=== PATIENT | female | born 1990 | race Caucasian/White ===

== ENCOUNTER 2017-01-27 13:06 | Emergency (ER) | payer OTHER ==
[2017-01-27] MEDS ORDERED: Dexamethasone 4 mg/ml Vial ONE (14:04)
== END 2017-01-27 14:50 | disposition home or self-care (01) ==
LOC: ERS 13:06
DX: O99.512 Diseases of the respiratory system complicating pregnancy, second trimester (principal); J45.901 Unspecified asthma with (acute) exacerbation; Z3A.23 23 weeks gestation of pregnancy
CPT/HCPCS: 94640; J1100; J7620

== ENCOUNTER 2017-01-27 15:01 | Day surgery (SDC) | payer OTHER ==
[2017-01-27 16:01] VITALS: BMI 21.7
[2017-01-27] MEDS ORDERED: Ondansetron HCl/PF 4 MG/2 ML Vial IVP PRN (16:12)
[2017-01-27] MEDS ORDERED: Lactated Ringer's 1,000 ML IV SCH ×2 (16:15)
[2017-01-27 16:51] LABS: Bilirubin Negative (Negative); Blood, Urine Negative (Negative); Glucose, Urine (Dipstick) Negative (Negative); Ketone, Urine 15 mg/dL (Negative); Nitrite Negative (Negative); Protein, Urine (Dipstick) Negative (Neg-Trace); Urobilinogen 0.2 mg/dL (0.2-1.0)
[2017-01-27 16:53] LABS: #Eosinphils 0.1 thou/uL (0.0-0.7); #Lymphocytes 1.1 thou/uL (1.20-3.40); #Monocytes 0.4 thou/uL (0.11-0.59); #Neutrophils 16.7 thou/uL (1.40-6.50); %Basophils 0.1 % (0.0-1.0); %Eosinophils 0.6 % (0.0-10.0); %Monocytes 2.3 % (0.0-10.0); Bacteria/HPF 1+ HPF (None Seen); Hematocrit 37.1 % (36.0-47.0); Hyaline Casts/LPF 0-3 HYALINE CAST LPF (0-3 Hyaline); Mean Platelet Volume 7.3 fL (7.4-10.4); RBC/HPF 0-3 HPF (0-3); Red Blood Cell (RBC) Count 4.11 mill/uL (4.20-5.40); Squamous Epithelial 0-3 HPF (0-3); WBC/HPF None Seen HPF (0-3); White Blood Cell (WBC) Count 18.3 thou/uL (4.8-10.8)
[2017-01-27 16:55] LABS: Amnisure Test No Membranes Rupture (No Rupture)
[2017-01-27 17:17] LABS: ALT (SGPT) Less than 7 U/L (8-55); AST (SGOT) 10 U/L (5-34); Alkaline Phosphatase 73 U/L (40-150); Anion Gap 16 mmol/L (10-20); BUN (Urea Nitrogen) 6 mg/dL (7.0-18.7); Bilirubin, Total 0.4 mg/dL (0.2-1.2); Calc. Creatinine Clearance 137 mL/min (70-130); Calcium 10.2 mg/dL (7.8-10.44); Carbon Dioxide 18 mmol/L (22-29); Chloride 106 mmol/L (98-107); Estimated GFR-MDRD Greater than 90; Protein, Total 7.1 g/dL (6.0-8.3)
--- NOTE | 2017-01-28 06:21 | PRG ---
DATE OF SERVICE: 01/27/2017 PRESENTING COMPLAINT: Vaginal spotting with nausea and vomiting. HISTORY OF PRESENT ILLNESS: Ms. Farias is a 26-year-old 1, para 0 at 23-24 weeks' gestation . OB record is not available in the unit. By verbal report, she is 23 weeks. She sees NEEMA Chaudhari, at [facility]. OB AND NON PROFIT JOB TITLES HISTORY: Primigravida. PAST MEDICAL HISTORY: None. PAST SURGICAL HISTORY: None. ALLERGIES: KEFLEX. MEDICATIONS: vitamins. SOCIAL HISTORY: Denies tobacco, alcohol, or drug abuse. FAMILY HISTORY: Noncontributory. REVIEW OF SYSTEMS: Noncontributory. Of note, the patient reports that she and her had inte rcourse last night prior to her vaginal spotting. She denies passage of blood clots. She denies cr amps. PHYSICAL EXAMINATION: GENERAL: White female in no acute distress. VITAL SIGNS: Temperature 98.4, respirations 18, pulse 96, blood pressure 118/72. HEENT: Within normal limits. LUNGS: Clear to auscultation bilaterally. HEART: Regular rhythm. ABDOMEN: Soft and nontender. PELVIC: Vulva without lesions. Vagina is without discharge. Cervix is closed, long, and high. EXTREMITIES: Without clubbing, cyanosis, or edema. LABORATORY DATA: Hematocrit is 37% with a white count of 18,000, normal differential, negative urin alysis, and a normal CMP. The patient had negative AmniSure test. SUMMARY OF HOSPITAL COURSE: The patient received 2 liters of IV fluid hydration. Her nausea and vo miting resolved with adding of Zofran. She is feeling much better, is hungry, and desires discharge home. She will be discharged home, instructed to reduce activities for a couple of days. If she f eels worse to return to Labor and Delivery or present to NEEMA Santillan, at [facility], otherwise to keep scheduled appointment in 2 weeks.
== END 2017-01-27 19:40 | disposition home or self-care (01) ==
LOC: L&D/OP 15:01
PROVIDERS: ATTEND Advanced Practice Midwife
DX: O99.89 Other specified diseases and conditions complicating pregnancy, childbirth and the puerperium (principal); R11.2 Nausea with vomiting, unspecified; O26.852 Spotting complicating pregnancy, second trimester; Z88.1 Allergy status to other antibiotic agents; Z79.899 Other long term (current) drug therapy; Z3A.23 23 weeks gestation of pregnancy
CPT/HCPCS: 80053; 81001; 84112; 85025; 94640; 96360; 96361; 96375; J1100; J2405; J7620

== ENCOUNTER 2017-03-19 20:31 | Emergency (ER) | payer OTHER ==
[2017-03-19 20:53] LABS: Modified Allen's Test POSITIVE; Oxyhemoglobin 90.4 % (94.0-97.0); Sodium 139 mmol/L (135-148)
[2017-03-19 20:54] LABS: Mode ROOM AIR
== END 2017-03-19 21:52 | disposition home or self-care (01) ==
LOC: ERS 20:31
DX: O9A.213 Injury, poisoning and certain other consequences of external causes complicating pregnancy, third trimester (principal); T58.91XA Toxic effect of carbon monoxide from unspecified source, accidental (unintentional), initial encounter; O99.511 Diseases of the respiratory system complicating pregnancy, first trimester; J45.909 Unspecified asthma, uncomplicated; Z3A.30 30 weeks gestation of pregnancy
CPT/HCPCS: 82805

== ENCOUNTER 2017-03-19 21:55 | Day surgery (SDC) | payer OTHER ==
[2017-03-19 22:32] VITALS: BP 141/93; BMI 24.2
[2017-03-19] MEDS ORDERED: Lactated Ringer's 2,000 ML IV SCH (23:00)
[2017-03-19] MEDS ORDERED: Ondansetron HCl/PF 4 MG/2 ML Vial ONE (23:00)
[2017-03-20] MEDS ORDERED: Ondansetron HCl/PF 4 MG/2 ML Vial IVP SCH (00:45)
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
== END 2017-03-20 00:42 | disposition home or self-care (01) ==
LOC: L&D/OP 21:55
PROVIDERS: ATTEND Obstetrics & Gynecology
DX: O36.8130 Decreased fetal movements, third trimester, not applicable or unspecified (principal); O9A.213 Injury, poisoning and certain other consequences of external causes complicating pregnancy, third trimester; T58.01XA Toxic effect of carbon monoxide from motor vehicle exhaust, accidental (unintentional), initial encounter; O99.343 Other mental disorders complicating pregnancy, third trimester; F32.9 Major depressive disorder, single episode, unspecified; R11.2 Nausea with vomiting, unspecified; Z88.1 Allergy status to other antibiotic agents; Z79.899 Other long term (current) drug therapy; Z3A.30 30 weeks gestation of pregnancy; W22.8XXA Striking against or struck by other objects, initial encounter
CPT/HCPCS: 82805; 96360; 96361; 96375; J2405

== ENCOUNTER → 2017-05-21 | Day surgery (SDC) | payer OTHER ==
[2017-05-21 16:56] VITALS: BMI 25.0
--- NOTE | 2017-05-21 18:19 | PRG ---
DATE OF SERVICE: 05/21/2017 PRIMARY OB: Ms. Margie Pérez. CHIEF COMPLAINT: Abdominal pains. HISTORY OF PRESENT ILLNESS: The patient is a 26-year-old G2, P1 female with an intrauterine pregnanc y at 39 weeks and 0 days, who is presenting to Labor and Delivery with uterine contractions. The pat ient reports that she had sex about 5 hours ago and has since begun having contractions some quite se kadeem. She says that her contractions have been off and on for the last couple days. The patient den ies any leakage of fluid or vaginal bleeding. She reports irregular contractions as close to 6 minut es and as far apart to 15 minutes. She reports she was last week was checked in the office and was 1 cm and has her next appointment tomorrow. The patient denies any fever. She reports headaches off and on with the . Denies chest pain, shortness of breath, reports some nausea and vomiting throughout the . Reports constipation. Denies diarrhea. Denies any new rash, denies bleed ing or leakage of fluid. PAST MEDICAL HISTORY: Headaches, seasonal allergies and history of depression. PAST SURGICAL HISTORY: Negative. OBSTETRIC HISTORY: She has had 1 term vaginal delivery. SOCIAL HISTORY: Denies drug, alcohol or tobacco use. ALLERGIES: KEFLEX. MEDICATIONS: vitamins. OB LABS: Blood type is O negative, antibody screen negative. She is rubella immune, hepatitis B solomon face antigen is nonreactive, RPR first and third trimester nonreactive, HIV first and third trimester nonreactive. One hour Glucola 112, antibody screen is negative. PHYSICAL EXAMINATION: VITAL SIGNS: Blood pressure 132/78, heart rate of 81, respiratory rate of 18, satting 99% on room ai r, temperature 98.1. GENERAL: She appears to be in no acute distress. She is alert and oriented, and cooperative and ple asant to interact with. HEENT: Head is normocephalic, atraumatic. LUNGS: Clear to auscultation bilaterally. HEART: Regular rate and rhythm. ABDOMEN: Soft, gravid, nontender, in between contractions. EXTREMITIES: Nontender, nonedematous. CERVICAL EXAM: Per nursing staff was 1, 50 and -3 station. heart tracing performed for threatened labor and interpreted by Dr. Luciano. Baseline is in th e 120s with moderate long-term variability, positive accelerations, no decelerations. She has on the tocometer irritability with only 1 or 2 contractions seen. ASSESSMENT AND PLAN: The patient is a 26-year-old G2, P1 female with an intrauterine at 39 weeks in latent labor or just having term contractions. The patient has reassuring fetus and is mani ng discharged to home with term precautions. She has an appointment to follow up with her primary OB Ms. Pérez tomorrow.
== END ==
LOC: L&D/OP 16:20
PROVIDERS: ATTEND Obstetrics & Gynecology
DX: O47.1 False labor at or after 37 completed weeks of gestation (principal); O99.343 Other mental disorders complicating pregnancy, third trimester; F32.9 Major depressive disorder, single episode, unspecified; Z3A.39 39 weeks gestation of pregnancy; Z88.1 Allergy status to other antibiotic agents; Z79.899 Other long term (current) drug therapy
CPT/HCPCS: 99282

== ENCOUNTER 2017-05-22 04:37 | Inpatient (IN) | payer OTHER ==
[2017-05-22 05:14] VITALS: BMI 24.3
[2017-05-22] MEDS ORDERED: Misoprostol 200 MCG TAB PR PRN (05:14)
[2017-05-22] MEDS ORDERED: Lidocaine 1% (PF) 30 ML VIAL SC PRN (05:14)
[2017-05-22] MEDS ORDERED: HYDROcodone/Acetaminophen 5/325 mg Tablet PO PRN ×3 (05:14→10:37)
[2017-05-22] MEDS ORDERED: Methylergonovine 0.2 MG/ML VIAL IM PRN ×2 (05:14→10:37)
[2017-05-22] MEDS ORDERED: LR / Pitocin 40 units/1000 ml 1,000 ML IV PRN (05:14)
[2017-05-22] MEDS ORDERED: Ondansetron HCl/PF 4 MG/2 ML Vial IVP PRN (05:14)
[2017-05-22] MEDS ORDERED: Ibuprofen 800 MG TAB PO PRN (05:14)
[2017-05-22] MEDS ORDERED: Lactated Ringer's 1,000 ML IV PRN (05:14)
[2017-05-22] MEDS ORDERED: Promethazine HCl 25 MG/ML VIAL IM PRN (05:14)
[2017-05-22] MEDS ORDERED: Oxytocin 10 UNITS/ML VIAL IM PRN (05:21)
[2017-05-22 05:49] LABS: Hemoglobin 11.3 g/dL (12.0-16.0); Mean Corpuscular HGB CONC 32.9 g/dL (32.0-36.0); Mean Corpuscular Hemoglobin 25.6 pg (27.0-31.0); Mean Corpuscular Volume 77.8 fl (81.0-99.0); Mean Platelet Volume 6.9 fL (7.4-10.4); Platelet Count 378 thou/uL (130-400); RBC Distribution Width 14.2 % (11.5-14.5); Red Blood Cell (RBC) Count 4.39 mill/uL (4.20-5.40); White Blood Cell (WBC) Count 12.1 thou/uL (4.8-10.8)
[2017-05-22 06:21] LABS: HBSAg Index 0.25 S/CO (0-0.99); Hep B Surf Ag Non-Reactive S/CO (NonReactive); Syphilis Antibody Nonreactive (Nonreactive); Syphilis Antibody Index 0.05 S/CO (<1.00 Non-Reactive)
--- NOTE | 2017-05-22 07:21 | PDOC.LDHP ---
Labor and Delivery H&P Chief complaint: contractions HPI: Pt started contrqcting last night, and was sent home. Her contractions got stronger around midnight. Just before 5am, she came to the hospital. Current gestational age (weeks): 39 Due date: 05/28/16 Grav: 2 Para: 1 OB History Details: #1 at 40weeks 5lb 15oz. #2 current Current complications: none Abnormal US findings: No Past Medical History: allergic rhinitis, anemia, depression (not on medications) Current medications: pre- vitamins Previous surgical history: none Allergies/Adverse Reactions: Allergies Allergy/AdvReac Type Severity Reaction Status Date / Time cephalexin [From Keflex] Allergy Mild Hives Verified 05/22/17 05:10 Social history: none - Physical Exam Vital signs reviewed and normal: yes General: breathing through contractions Heart: RRR Lungs: nonlabored breathing Abdomen: gravid - Vaginal Exam cm dilated: 10 Effacement: 100% Station: 3+ - OB Labs Blood type: O RH: negative Antibody Screen: negative HIV: negative RPR: negative HEPSAg: negative 1 hour GCT: negative GBS: negative Urine drug screen: not done Rubella: immune - Assessment L&D Assessment: term patient in labor - Plan Plan: admit to L&D -: anticipate Rhogam after delivery.
--- NOTE | 2017-05-22 07:28 | PDOC.OPDEL ---
OB Operative/Delivery Note Delivery Dr/Surgeon: Marisol Pérez Pre-Delivery Diagnosis: active labor Procedure/Post Delivery Dx: spontaneous vaginal delivery Weeks gestation: 39 Anesthesia: none - Findings A Sex: female Weight: 6 lb 5 oz - 1 min: 9 - 5 min: 9 - Additional Findings/Plan Placenta delivered: spontaneous Repaired Obstetrical Laceration: none Estimated blood loss: 300mL Post delivery plan: routine recovery
[2017-05-22] MEDS ORDERED: Misoprostol 200 MCG TAB VAG PRN (10:37)
[2017-05-22] MEDS ORDERED: Milk Of Magnesia 30 ML UDCUP PO PRN (10:37)
[2017-05-22] MEDS ORDERED: Bisacodyl 10 MG SUPP PR PRN (10:37)
[2017-05-22] MEDS ORDERED: Benzocaine/Menthol 20-0.5% 60 ML CAN TOP PRN (10:37)
[2017-05-22] MEDS ORDERED: Lanolin Ointment 7 GM TUBE TOP PRN (10:37)
[2017-05-22] MEDS ORDERED: LR / Pitocin 40 units/1000 ml 1,000 ML IV SCH (10:37)
[2017-05-22] MEDS ORDERED: Adacel (T-DAP) 0.5 ML VIAL IM ONE (10:37)
[2017-05-22] MEDS ORDERED: Prenatal Vitamin 1 TAB PO SCH (11:15)
[2017-05-22] MEDS ORDERED: Docusate Calcium (SURFAK) 240 MG CAP PO SCH (11:15)
[2017-05-22] MEDS ORDERED: Ferrous Sulfate 325 MG TAB PO SCH (11:15)
[2017-05-22] MEDS ORDERED: Sodium Chloride 0.9% 10 ML ONE (13:10)
[2017-05-22] MEDS: Ibuprofen 800 MG TAB PO SCH ×2 (13:14→22:07)
[2017-05-22] MEDS: Ferrous Sulfate 325 MG TAB PO SCH (17:15)
[2017-05-22] MEDS: HYDROcodone/Acetaminophen 5/325 mg Tablet PO PRN (19:53)
[2017-05-22] MEDS: Docusate Calcium (SURFAK) 240 MG CAP PO SCH (19:53)
[2017-05-23] MEDS: HYDROcodone/Acetaminophen 5/325 mg Tablet PO PRN ×2 (01:01→12:14)
[2017-05-23 05:25] LABS: Mean Corpuscular HGB CONC 32.7 g/dL (32.0-36.0); Mean Corpuscular Hemoglobin 25.9 pg (27.0-31.0); Mean Corpuscular Volume 79.2 fl (81.0-99.0); Platelet Count 288 thou/uL (130-400); Red Blood Cell (RBC) Count 3.49 mill/uL (4.20-5.40); White Blood Cell (WBC) Count 12.6 thou/uL (4.8-10.8)
[2017-05-23] MEDS: Ibuprofen 800 MG TAB PO SCH ×2 (06:02→14:13)
[2017-05-23 06:25] VITALS: TEMP 98.6
[2017-05-23 08:24] VITALS: BP 106/58
[2017-05-23] MEDS: Ferrous Sulfate 325 MG TAB PO SCH (08:45)
[2017-05-23] MEDS: Docusate Calcium (SURFAK) 240 MG CAP PO SCH (08:45)
[2017-05-23] MEDS ORDERED: Prenatal Vitamin 1 TAB PO SCH (09:00)
== END 2017-05-23 16:40 | disposition home or self-care (01) | DRG 775 ==
LOC: L&D/OP 04:37 → L&D-LIB 05:23 → 3SW 10:36
PROVIDERS: ADMIT Obstetrics & Gynecology; ATTEND Obstetrics & Gynecology
PROC: 10E0XZZ Delivery of Products of Conception, External Approach (ICD-10-PCS; principal; 2017-05-22)
DX: O80 Encounter for full-term uncomplicated delivery (principal); Z37.0 Single live birth; Z3A.39 39 weeks gestation of pregnancy
CPT/HCPCS: 36415; 85027; 85461; 86780; 87340; 90384; 90715; 96372; 99282; 99285; A4216; J2001; J2590

== ENCOUNTER 2017-05-28 17:24 | Emergency (ER) | payer OTHER ==
[~2017-05-28 17:24] MED LIST: ISOVUE-370 76%-LOCM 1 ML ONE
[2017-05-28 18:21] LABS: Bilirubin Negative (Negative); Blood, Urine Large (Negative); Clarity CLOUDY (Clear); Glucose, Urine (Dipstick) Negative (Negative); Leukocyte Moderate (Negative); Nitrite Negative (Negative); Protein, Urine (Dipstick) Trace mg/dL (Neg-Trace); Specific Gravity, Urine 1.009 (1.002-1.036); pH, Urine 6.5 (5.0-9.0)
[2017-05-28 18:22] LABS: Bacteria/HPF None Seen HPF (None Seen); Hyaline Casts/LPF 0-3 HYALINE CAST LPF (0-3 Hyaline); RBC/HPF GREATER THAN 50-TNTC HPF (0-3); Squamous Epithelial 0-3 HPF (0-3); WBC/HPF 21-50 HPF (0-3)
--- NOTE | 2017-05-28 18:28 | RAD ---
PA AND LATERAL CHEST X-RAY 05/28/17 HISTORY: Dyspnea. Patient is less than one week . Patient also complains of chest pain and shortness of breath. COMPARISON: None available. FINDINGS: The cardiac silhouette and pulmonary vasculature are within normal limits. The lungs are clear. [place] us structures are intact. IMPRESSION: No acute cardiopulmonary process. POS: CODIE
[2017-05-28 18:30] LABS: #Basophils 0.1 thou/uL (0.0-0.2); #Eosinphils 0.1 thou/uL (0.0-0.7); #Lymphocytes 3.1 thou/uL (1.20-3.40); #Monocytes 0.7 thou/uL (0.11-0.59); #Neutrophils 5.4 thou/uL (1.40-6.50); %Basophils 1.1 % (0.0-1.0); %Eosinophils 1.5 % (0.0-10.0); %Neutrophils 57.3 % (42.0-75.0); Hemoglobin 11.1 g/dL (12.0-16.0); Mean Corpuscular HGB CONC 32.7 g/dL (32.0-36.0); Mean Corpuscular Hemoglobin 25.8 pg (27.0-31.0); Mean Corpuscular Volume 78.7 fl (81.0-99.0); Mean Platelet Volume 6.4 fL (7.4-10.4); Platelet Count 452 thou/uL (130-400); RBC Distribution Width 14.8 % (11.5-14.5); Red Blood Cell (RBC) Count 4.32 mill/uL (4.20-5.40); White Blood Cell (WBC) Count 9.5 thou/uL (4.8-10.8)
[2017-05-28 18:36] LABS: INR-International Normal Ratio 0.9; Prothrombin Time 12.6 SEC (12.0-14.7)
[2017-05-28 18:38] LABS: D-Dimer Test 1.18 *mcg/mL (0.27-0.43)
[2017-05-28 18:51] LABS: ALT (SGPT) 13 U/L (8-55); AST (SGOT) 13 U/L (5-34); Albumin 3.9 g/dL (3.5-5.0); Alkaline Phosphatase 116 U/L (40-150); Anion Gap 14 mmol/L (10-20); BUN (Urea Nitrogen) 15 mg/dL (7.0-18.7); Bilirubin, Total 0.3 mg/dL (0.2-1.2); Calc. Creatinine Clearance 0 mL/min (70-130); Calcium 9.4 mg/dL (7.8-10.44); Carbon Dioxide 21 mmol/L (22-29); Chloride 107 mmol/L (98-107); Estimated GFR-MDRD 88; Globulin 3.2 g/dL (2.4-3.5); Glucose 90 mg/dL (70-105); Potassium 3.5 mmol/L (3.5-5.1); Protein, Total 7.1 g/dL (6.0-8.3); Sodium 138 mmol/L (136-145)
[2017-05-28 18:55] LABS: CKMB 1.2 ng/mL (0-6.6); Troponin I Less than 0.010 ng/mL (< 0.028)
--- NOTE | 2017-05-28 21:15 | CT ---
CT ANGIOGRAM THORAX WITH IV CONTRAST AND 3D RECONSTRUCTIONS 05/28/17 HISTORY: Chest pain. Patient states she feels intermittent tightness within the central chest with associated shortness of breath. Patient also reports vaginal bleeding. COMPARISON: None available. FINDINGS: There is a 4 mm pulmonary nodule seen in the right middle lobe adjacent to the fissure. This could po tentially represent nodular pleural thickening. The lungs are otherwise clear. There is no pleural ef fusion, additional pulmonary nodule, or mass seen. Osseous structures are intact. The visualized upper abdomen has a normal CT appearance. IMPRESSION: 1. No CT evidence of a pulmonary embolus. 2. Pleural based pulmonary nodule right middle lobe measuring 4 mm which is too small to charact erize. POS: CODIE
== END 2017-05-28 21:31 | disposition home or self-care (01) ==
LOC: ERS 17:24
DX: O99.89 Other specified diseases and conditions complicating pregnancy, childbirth and the puerperium (principal); R07.89 Other chest pain; R91.1 Solitary pulmonary nodule; N39.0 Urinary tract infection, site not specified; O99.53 Diseases of the respiratory system complicating the puerperium; J45.909 Unspecified asthma, uncomplicated
CPT/HCPCS: 36415; 71046; 71275; 80053; 81003; 81015; 82553; 84484; 85025; 85379; 85610; 87086; 93005; 96360; 96361

== ENCOUNTER 2018-09-07 01:36 | Observation (INO) | payer OTHER, SELFPAY ==
[2018-09-07 04:09] VITALS: BMI 17.9
--- NOTE | 2018-09-07 04:10 | PDOC.FPRHP ---
- History of Present Illness Chief Complaint: nausea and vomiting History of Present Illness: Patient is a 27YO @ 26.1 weeks c/w her LMP who was transferred from the [facility] ER after presenting there with intractable N/V determined to be 2/2 hyperemesis gravidarum. Per the patient, she has been dealing with intractable nausea and vomiting for the entire duration of this and had a "bad week" this week where she has been unable to keep anything down. She had been trying diclegis, phenergan and zofran at home with no relief so finally decided to go to the ER for evaluation and treatment. She reports associated dizziness, clamminess, and headaches but denies any fever/chills or diarrhea. Of note, the patient reports ~4-5 ER visits during this for her hyperemesis during which she goes to get IVFs and IV antiemetics for a few hours before being sent home. She has never been admitted for her hyperemesis and also experienced hyperemesis during her last . ED Course: zofran - Allergies/Adverse Reactions Allergies Allergy/AdvReac Type Severity Reaction Status Date / Time cephalexin [From Keflex] Allergy Mild Hives Verified 05/22/17 05:10 - Home Medications Medication Instructions Recorded Confirmed Type Ondansetron [Zofran ODT] 8 mg PO BID 01/27/17 09/07/18 History Mv-Mn/Iron/FA/Herbal/Digestive 1 tablet PO DAILY 03/19/17 09/07/18 History [ One Tablet] Omeprazole Magnesium [Prilosec] 10 mg PO BID 03/19/17 09/07/18 History Acetaminophen [Tylenol Regular 650 mg PO Q4H PRN tab 09/07/18 Rx Strength] Metoclopramide HCl [Reglan] 10 mg PO Q8HR #90 tab 09/07/18 Rx Ondansetron [Zofran ODT] 8 mg SL Q8HR #60 tab 09/07/18 Rx Polyethylene Glycol 3350 [Miralax] 17 gm PO DAILYPRN PRN #1 bot 09/07/18 Rx Promethazine HCl [Phenergan 25 mg TN Q6HR PRN #60 supp 09/07/18 Rx Suppository] diphenhydrAMINE [Benadryl] 25 mg PO Q8HR #60 cap 09/07/18 Rx - History PMHx: h/o hyperemesis in prior PSHx: none FHx: none Social: Live at home with and 2 children. No TAD. - Review of Systems General: reports: weight/appetite/sleep changes, fatigue. denies: fever/chills Eyes: denies: vision changes ENT: reports: other (no sore throat). denies: nasal congestion Respiratory: denies: cough, shortness of breath Cardiovascular: reports: palpitation. denies: chest pain Gastrointestinal: reports: nausea, vomiting, abdominal pain, other (reflux). denies: diarrhea Genitourinary: reports: other (no frequency). denies: dysuria Skin: denies: rashes, lesions Musculoskeletal: denies: pain, tenderness, swelling Neurological: reports: other (dizziness). denies: syncope - Vital signs BP: 118/56 HR: 85 RR: 20 Tmax: 98.2F Pox: 98% on RA Wt: 49kg - Physical Exam Constitutional: NAD, awake, alert and oriented, well developed HEENT: normocephalic and atraumatic, conjunctiva clear, grossly normal vision, grossly normal hearing, oropharynx clear, good dention, other (slightly dry appearing mucus membranes) Neck: supple, FROM Heart: RRR, normal S1/S2, no murmurs/rubs/gallops, pulses present, no edema Lungs: CTAB, no respiratory distress, good air movement, no rales/rhonchi, no wheezing, no retractions Abdomen: bowel sounds present, other (gravid abdomen) Musculoskeletal: normal structure, ROM grossly normal Neurological: no focal deficit, CN II-XII intact (grossly) Skin: no rash/lesions, good turgor, no jaundice Heme/Lymphatic: no unusual bruising or bleeding, no purpura, no petechia Psychiatric: normal mood and affect, good judgment and insight, intact recent and remote memory FMR H&P: Results - Labs Result Diagrams: 09/07/18 05:28 09/07/18 05:28 FMR H&P: A/P - Problem List (1) Hyperemesis gravidarum Status: Acute Code(s): O21.0 - MILD HYPEREMESIS GRAVIDARUM (2) Anemia affecting in second trimester Status: Acute Code(s): O99.012 - ANEMIA COMPLICATING , SECOND TRIMESTER (3) Single in second trimester Status: Acute Code(s): Z34.92 - ENCNTR FOR SUPRVSN OF NORMAL PREG, UNSP, SECOND TRIMESTER - Plan 27YO @ 26.1 weeks by LMP transferred for CSMS 2/2 hyperemesis gravidarum. Hyperemesis gravidarum: - Patient reports an adverse reaction to zofran (constipation) so will start on BENJAMIN benadryl and reglan TID. - Will continue IVFs w/ LR @ 100mLhr & start on a clear liquid diet for now & advance as tolerated. Will monitor strict I&Os. - Will get repeat bloodwork including a CBC and CMP to monitor Hgb as well as electrolytes. Anemia in : - Hgb of 8.6 at outside ED. Patient reports that she is supposed to be taking PO iron but has been unable to tolerate it 2/2 her severe nausea and vomiting. - Likely 2/2 iron deficiency; however, MCV WNLs so will confirm by checking iron & ferritin levels as well as iron studies. Will also check B12, folate & TSH levels to r/o other potential causes of anemia. - Will consider giving patient an iron infusion while inpatient based on lab results and will start on PO iron in conjuction with stool softeners once tolerating PO. GERD in : - Will resume home meds once tolerating PO. sIUP in second trimester: - Will continue PNVs and ensure patient has good OB f/u upon discharge. FMR H&P: Upper Level - Plan Date/Time: 09/07/18 0408 I, [], have evaluated this patient and agree with findings/plan as outlined by advisory intern resident. Pertinent changes/additions are listed here. Addendum - Attending - Attending Attestation Date/Time: 09/08/18 1100 I personally evaluated the patient and discussed the management with Dr. Sanchez and team on 09/07. I agree with the History, Examination, Assessment and Plan documented above with any addition or exceptions noted below.
[2018-09-07] MEDS ORDERED: Acetaminophen 650 MG Suppository PR PRN (04:39)
[2018-09-07] MEDS ORDERED: Acetaminophen 325 MG TAB PO PRN (04:39)
[2018-09-07] MEDS ORDERED: Bisacodyl 5 MG TAB PO PRN (04:39)
[2018-09-07] MEDS ORDERED: diphenhydrAMINE 50 MG/ML VIAL IVP SCH (04:45)
[2018-09-07] MEDS ORDERED: Lactated Ringer's 1,000 ML IV SCH (05:00)
[2018-09-07 05:41] LABS: #Eosinphils 0.1 thou/uL (0.0-0.7); #Lymphocytes 2.6 thou/uL (1.20-3.40); #Monocytes 0.7 thou/uL (0.11-0.59); #Neutrophils 7.2 thou/uL (1.40-6.50); %Basophils 0.3 % (0.0-1.0); %Eosinophils 0.6 % (0.0-10.0); %Lymphocytes 24.2 % (21.0-51.0); %Monocytes 6.2 % (0.0-10.0); %Neutrophils 68.6 % (42.0-75.0); Hemoglobin 8.3 g/dL (12.0-16.0); Mean Corpuscular HGB CONC 33.8 g/dL (32.0-36.0); Mean Corpuscular Hemoglobin 29.9 pg (27.0-31.0); Mean Corpuscular Volume 88.5 fL (78.0-98.0); Platelet Count 243 thou/uL (130-400); RBC Distribution Width 12.3 % (11.5-14.5); Red Blood Cell (RBC) Count 2.78 mill/uL (4.20-5.40); White Blood Cell (WBC) Count 10.6 thou/uL (4.8-10.8)
[2018-09-07] MEDS ORDERED: Metoclopramide HCl 10 MG/2 ML VIAL IVP SCH (06:00)
[2018-09-07 06:02] LABS: ALT (SGPT) Less than 7 U/L (8-55); AST (SGOT) 7 U/L (5-34); Albumin 3.1 g/dL (3.5-5.0); Alkaline Phosphatase 39 U/L (40-150); Anion Gap 10 mmol/L (10-20); BUN (Urea Nitrogen) 5 mg/dL (7.0-18.7); Bilirubin, Total 0.2 mg/dL (0.2-1.2); Calc. Creatinine Clearance 115 mL/min (70-130); Calcium 8.2 mg/dL (7.8-10.44); Carbon Dioxide 22 mmol/L (22-29); Chloride 109 mmol/L (98-107); Estimated GFR-MDRD Greater than 90; Globulin 2.1 g/dL (2.4-3.5); Glucose 90 mg/dL (70-105); Iron 33 ug/dL (50-170); Iron Binding Capacity, Total 425 mcg/dL (265-497); Potassium 3.6 mmol/L (3.5-5.1); Protein, Total 5.2 g/dL (6.0-8.3); Sodium 137 mmol/L (136-145)
[2018-09-07 06:04] LABS: Iron 33 ug/dL (50-170); Iron Binding Capacity, Total 431 mcg/dL (265-497)
[2018-09-07 06:17] LABS: Ferritin 2.75 ng/mL (10-291); Thyroid Stimulating Hormone 1.5552 uIU/mL (0.35-4.94)
[2018-09-07 06:31] LABS: Folate (Folic Acid) 11.8 ng/mL (7.0-31.4)
--- NOTE | 2018-09-07 06:42 | PDOC.FM ---
- Objective Vital Signs & Weight: Vital Signs (12 hours) Temp Pulse Resp BP Pulse Ox 09/07/18 03:59 98.2 F 85 20 118/56 L 98 Weight Weight 49 kg I&O: 09/05/18 09/06/18 09/07/18 06:59 06:59 06:59 Intake Total 100 Balance 100 Result Diagrams: 09/07/18 05:28 09/07/18 05:28
[2018-09-07] MEDS ORDERED: Multivitamin W/ Minerals 1 TAB PO SCH (09:00)
[2018-09-07] MEDS ORDERED: Iron, Sodium Ferric Gluconate 250 MG in Sodium Chloride 0.9% 100 ML IVPB SCH (11:30)
[2018-09-07] MEDS ORDERED: Metoclopramide HCl 10 MG TAB PO SCH (14:00)
[2018-09-07] MEDS ORDERED: diphenhydrAMINE 25 MG CAP PO SCH (14:00)
[2018-09-07] MEDS ORDERED: Promethazine HCl 12.5 MG SUPP PR SCH (15:00)
[2018-09-07] MEDS ORDERED: Polyethylene Glycol 3350 17 GM Packet PO PRN (15:03)
[2018-09-07] MEDS ORDERED: Ondansetron ODT 8 MG TAB SL SCH ×2 (15:15→15:45)
[2018-09-07 16:03] VITALS: BP 117/58; TEMP 98.4
--- NOTE | 2018-09-08 22:51 | DIS ---
DATE OF ADMISSION: 09/07/2018 DATE OF DISCHARGE: 09/07/2018 RESIDENT: Royal Odonnell MD. ADMITTING ATTENDING: Joey Wilson MD. DISCHARGE ATTENDING: Karl Sorto MD. CONSULTS: None. PROCEDURES: None. PRIMARY DIAGNOSES: 1. Hyperemesis gravidarum. 2. Anemia affecting in 2nd trimester. SECONDARY DIAGNOSIS: Single in 2nd trimester. DISCHARGE MEDICATIONS: 1. Tylenol 650 mg p.o. q.4 hours p.r.n. 2. Benadryl 25 mg p.o. q.8 hours. 3. Reglan 10 mg p.o. q.8 hours. 4. Zofran 8 mg sublingual q.8 hours p.r.n. 5. MiraLAX 17 g p.o. daily p.r.n. HISTORY OF PRESENT ILLNESS/HOSPITAL COURSE: Vale Farias is a 27-year-old female, G3, P2-0-0-2, at 26 and 1 weeks consistent with her last menstrual period, who was transferred from [facility] ER after presenting there with intractable nausea and vomiting, determined to be secondary to hyperemesis gravidarum. Per the patient, she had been dealing with intractable nausea and vomiting for the entire duration of this and had a bad week this week, where she had been unable to keep anything down. She has tried Diclegis, Phenergan, and Zofran at home with no relief, so she finally decided to go to the ER for evaluation and treatment. She reports associated dizziness, clamminess, and headaches, but denies any fevers, chills, diarrhea, or abdominal pain. Of note , the patient reports about 4-5 ER visits during this for hyperemesis, during which she goes and gets IV fluids and IV antiemetics for the first few hours before being sent home. She also states that she experienced hyperemesis during her last pregnancies. In the ED, she received Zofran and was admitted for observation. Initial vital signs were blood pressure 118/56, heart rate 85, respiratory rate 20, temperature is 98.2, pulse ox 98% on room air. Physical exam was significant only for gravid abdomen and slightly dry appearing mucous membranes. Labs on admission; white count 10.6, hemoglobin 8.3, hematocrit 24.6, platelets 243. Sodium 137, potassium 3.6, chloride 109, bicarb 22, BUN 5, creatinine 0.58, glucose of 90. The patient was put on observation for hyperemesis gravidarum and for anemia of . She was initially started on IV fluids, LR at 100 mL an hour and clear liquid diet and started on scheduled IV Benadryl and Reglan t.i.d. In regard to hyperemesis, the patient tolerated the antiemetics well and that improved her nausea so that she could tolerate p.o. fluids and some small meals. She was transitioned to an oral regimen, Phenergan 25 mg t.i.d. and Benadryl p.o. t.i.d. with breakthrough Zofran. The patient stated that the Zofran caused her to have constipation, so we also gave MiraLAX. In regard to her anemia of , she had a hemoglobin of 8.2 on admission. She was supposed to be taking p.o. iron, but has been unable to tolerate it due to her severe nausea and vomiting. B12, folate, and TSH levels were all normal. Iron studies were performed that showed a low ferritin of 2.4, low iron, normal TIBC. It was decided to give the patient iron infusion, was done on day of admission. She received sodium ferric gluconate 250 mg and tolerated it well. The patient was cleared for discharge after getting control of nausea and vomiting, tolerated diet and after receiving iron infusion. DISPOSITION: Stable. The patient should do well if she continues scheduled regimen and establish care with OB for routine followup and for nausea and vomiting management as well as repeat iron studies and CBC in about 4 weeks. DISCHARGE INSTRUCTIONS: 1. Location: Home. 2. Diet: Regular. 3. Activity: As tolerated. 4. Follow up with OB provider within one week. Job ID: [id number] [id number]
== END 2018-09-07 17:26 | disposition home or self-care (01) ==
LOC: INTOOBSV 03:48 → 3SE 03:48
PROVIDERS: ADMIT Family Medicine; ATTEND Family Medicine
DX: O21.0 Mild hyperemesis gravidarum (principal); O99.012 Anemia complicating pregnancy, second trimester; O99.612 Diseases of the digestive system complicating pregnancy, second trimester; K21.9 Gastro-esophageal reflux disease without esophagitis; Z3A.26 26 weeks gestation of pregnancy; Z79.899 Other long term (current) drug therapy; Z88.1 Allergy status to other antibiotic agents
CPT/HCPCS: 36415; 80053; 82607; 82728; 82746; 83540; 83550; 84443; 85025; 96361; 96365; 96366; 96375; G0378; J1200; J2765; J2916; J3490; J8597; Q0163

== ENCOUNTER 2018-11-11 11:37 | Day surgery (SDC) | payer MEDICAID, OTHER ==
[2018-11-11] MEDS ORDERED: hydrALAZINE 20 MG/ML VIAL SLOW IVP PRN (12:44)
[2018-11-11] MEDS ORDERED: diphenhydrAMINE 50 MG/ML VIAL IVP SCH (13:00)
[2018-11-11] MEDS ORDERED: Metoclopramide HCl 10 MG/2 ML VIAL IVP SCH (13:00)
[2018-11-11 13:22] LABS: Anion Gap 14 mmol/L (10-20); BUN (Urea Nitrogen) 10 mg/dL (7.0-18.7); Calc. Creatinine Clearance 0 mL/min (70-130); Calcium 9.2 mg/dL (7.8-10.44); Carbon Dioxide 21 mmol/L (22-29); Chloride 103 mmol/L (98-107); Estimated GFR-MDRD Greater than 90; Glucose 84 mg/dL (70-105); Magnesium 1.9 mg/dL (1.6-2.6); Potassium 4.1 mmol/L (3.5-5.1); Sodium 134 mmol/L (136-145)
[2018-11-11 15:49] VITALS: BMI 23.6
--- NOTE | 2018-11-11 17:53 | PRG ---
DATE OF SERVICE: 11/11/2018 PRIMARY OB: . Margie Pérez, certified nurse-park ranger. CHIEF COMPLAINT: Nausea and vomiting. HISTORY OF PRESENT ILLNESS: The patient is a 27-year-old G3, P2 female with an intrauterine at 31 weeks, who is presenting to Labor and Delivery with worsening nausea and vomiting in the last few days. The patient reports that she has had trouble with this in her entire and has had multiple visits to various emergency rooms prior to establishing care at 26 weeks with Ms. Margie Pérez. The patient reports that her vomiting is usually small volume and it is after she eats or drinks. The patient also reports that she has had longstanding constipation that she attributes to the Zofran that she takes and has a bowel movement about once a week. The patient denies any uterine contractions or vaginal bleeding. She does report she has a complete previa with a scheduled at 36 weeks gestation. The patient denies any recent illness, fever, fall, headache, chest pain, shortness of breath, diarrhea, any new rashes, hip problems, knee problems, muscle weakness, back pain, vaginal bleeding, leakage of fluid, urinary urgency or frequency. The patient reports that she has been taking her medications regularly at home including Benadryl at night before she goes to bed, Reglan three times a day, and Zofran throughout the day as needed. PAST MEDICAL HISTORY: Bipolar disorder. PAST SURGICAL HISTORY: Negative. SOCIAL HISTORY: Denies drug, alcohol, or tobacco use. ALLERGIES: CEPHALEXIN. MEDICATIONS: 1. Zofran. 2. Benadryl. 3. Reglan. 4. Prozac 20 mg daily. OB LABS: Blood type is O negative, antibody screen is negative. VDRL is nonreactive. Hepatitis B surface antigen is nonreactive. HIV is nonreactive. She is rubella immune. REVIEW OF SYSTEMS: Per HPI. PHYSICAL EXAMINATION: VITAL SIGNS: Blood pressure 113/59, heart rate of 94, respiratory rate 18, temperature 98.5. GENERAL: She appears to be in no acute distress. She is alert, oriented, cooperative, and pleasant to interact with. HEAD: Normocephalic and atraumatic. LUNGS: Clear to auscultation bilaterally. HEART: Has a regular rate and rhythm. ABDOMEN: Gravid and soft, nontender. EXTREMITIES: Nontender and nonedematous. : Has been deferred. heart tracing shows the fetus with a baseline in the 130s with moderate long-term variability, positive accelerations, no decelerations. Tocometer is showing perhaps some irritability, but not felt by the patient. LABORATORY DATA: Sodium 134, potassium 4.1, chloride 103, bicarb 21, BUN 10, creatinine 0.63, glucose 84, calcium 9.2, magnesium 1.9. The patient has received 3 L of IV fluids and is feeling much better. She has been able to urinate nice, clear urine, and has not had any vomiting since being given IV medications. Of note, after reviewing the patient's records, it does appear the patient has gained about 8 pounds in the last 6 weeks and has lost perhaps a pound since her last visit about 1 week ago. This information has been shared with the patient, giving her reassurance that she has been able to keep down sufficient nutrients despite her nausea and vomiting to gain appropriate weight. ASSESSMENT AND PLAN: The patient is a 27-year-old female with an intrauterine at 31 weeks and 4 days, who has been experiencing nausea and vomiting throughout this . She has had difficulty keeping things down for the last 2 to 3 days, has had recorded about 1-pound weight loss in the last week. She is feeling much better after 3 L of hydration and has had no vomiting here with us. The patient did receive 25 mg of Benadryl, 10 mg of Reglan, and 4 mg of Zofran, all IV. She has been counseled to take her medications as prescribed at home. We have also counseled her to consider cleaning out her bowels with enemas as she may not tolerate anything p.o. at this time. We have also counseled her to take her MiraLAX daily at home and to titrate her dosing until she can have a nice full bowel movement every 1 to 2 days. Fetus has a category 1 tracing and reactive NST, and has an appointment with her primary OB next Friday. The patient has been given labor precautions. Job ID: [id number]
== END 2018-11-11 16:10 | disposition home or self-care (01) ==
LOC: L&D/OP 11:37
PROVIDERS: ATTEND Advanced Practice Midwife
DX: O21.2 Late vomiting of pregnancy (principal); O99.343 Other mental disorders complicating pregnancy, third trimester; F31.9 Bipolar disorder, unspecified; Z88.1 Allergy status to other antibiotic agents; Z79.899 Other long term (current) drug therapy; Z3A.31 31 weeks gestation of pregnancy
CPT/HCPCS: 80048; 83735; 96360; 96361; 96375; 99285; J1200; J2765

== ENCOUNTER 2018-11-22 12:57 | Day surgery (SDC) | payer OTHER ==
[2018-11-22] MEDS ORDERED: Acetaminophen 500 MG TAB PO PRN (13:39)
[2018-11-22] MEDS ORDERED: Iron Sucrose Complex 500 MG in Sodium Chloride 0.9% 250 ML 250 ML IVPB SCH (13:39)
[2018-11-22 13:42] VITALS: BMI 25.7
[2018-11-22] MEDS ORDERED: Lactated Ringer's 1,000 ML IV SCH (13:45)
[2018-11-22] MEDS ORDERED: Promethazine HCl 25 MG/ML VIAL IM/IV PRN (16:03)
== END 2018-11-22 18:05 | disposition home or self-care (01) ==
LOC: L&D/OP 12:57
PROVIDERS: ATTEND Advanced Practice Midwife
DX: O99.019 Anemia complicating pregnancy, unspecified trimester (principal); Z88.1 Allergy status to other antibiotic agents; Z3A.00 Weeks of gestation of pregnancy not specified
CPT/HCPCS: 96361; 96365; 96366; 96372; 99282; J1756; J2550; J7050

== ENCOUNTER 2018-12-15 05:41 | Inpatient (IN) | payer OTHER ==
[2018-12-15] MEDS ORDERED: Ondansetron PF 4 MG/2 ML Vial IVP PRN ×3 (06:06→10:42)
[2018-12-15] MEDS ORDERED: Lactated Ringer's 1,000 ML IV SCH (06:06)
[2018-12-15] MEDS ORDERED: Promethazine HCl 25 MG/ML VIAL IM PRN ×3 (06:06→10:42)
[2018-12-15] MEDS ORDERED: hydrALAZINE 20 MG/ML VIAL SLOW IVP PRN ×2 (06:06→10:42)
[2018-12-15 06:09] VITALS: BMI 25.7
[2018-12-15] MEDS: Lactated Ringer's 1,000 ML IV SCH ×2 (06:15→07:20)
[2018-12-15] MEDS ORDERED: Gentamicin Sulfate 120 MG in Premix Bag 1 BAG IVPB SCH (06:15)
[2018-12-15] MEDS ORDERED: Clindamycin/D5W 900 MG in Premix Bag 1 BAG IVPB SCH (06:15)
[2018-12-15] MEDS ORDERED: Bicitra 30 ML UDCUP ONE (06:17)
[2018-12-15 06:33] LABS: Mean Corpuscular HGB CONC 33.7 g/dL (32.0-36.0); Mean Corpuscular Hemoglobin 28.5 pg (27.0-31.0); Mean Corpuscular Volume 84.6 fL (78.0-98.0); Mean Platelet Volume 6.9 fL (7.4-10.4); Platelet Count 300 thou/uL (130-400); RBC Distribution Width 16.1 % (11.5-14.5); Red Blood Cell (RBC) Count 3.86 mill/uL (4.20-5.40); White Blood Cell (WBC) Count 9.5 thou/uL (4.8-10.8)
[2018-12-15 07:06] LABS: HBSAg Index 0.15 S/CO (0-0.99); Hep B Surf Ag Non-Reactive S/CO (NonReactive); Syphilis Antibody Nonreactive (Nonreactive); Syphilis Antibody Index 0.03 S/CO (<1.00 Non-Reactive)
[2018-12-15] MEDS ORDERED: MORPHINE 5 MG/10 ML PF VIAL ONE (07:24)
[2018-12-15] MEDS ORDERED: Dexamethasone 4 mg/ml Vial ONE (07:25)
[2018-12-15] MEDS ORDERED: Ketorolac Tromethamine 30 MG/ML VIAL ONE ×2 (07:25→17:45)
[2018-12-15] MEDS ORDERED: Ondansetron PF 4 MG/2 ML Vial ONE ×2 (07:25→17:45)
[2018-12-15] MEDS ORDERED: PHENYLEPHRINE-NS 100 MCG/ML 10 ML SYRINGE ONE ×2 (07:25→17:45)
[2018-12-15] MEDS ORDERED: diphenhydrAMINE 50 MG/ML VIAL ONE ×2 (07:25→17:45)
[2018-12-15] MEDS ORDERED: Oxytocin 10 UNITS/ML VIAL ONE (07:25)
[2018-12-15] MEDS ORDERED: Midazolam HCl 2 mg/2 ml Vial ONE (07:33)
[2018-12-15] MEDS ORDERED: Tranexamic Acid 1,000 MG/10 ML VIAL ONE (07:35)
[2018-12-15] MEDS ORDERED: HYDROmorphone 2 MG/ML VIAL SLOW IVP PRN (08:19)
[2018-12-15] MEDS ORDERED: Naloxone HCl 0.4 mg/ml Vial IVP PRN ×2 (08:19)
[2018-12-15] MEDS ORDERED: Meperidine HCl/PF 25 MG/ML VIAL SLOW IVP PRN (08:19)
[2018-12-15] MEDS ORDERED: Ondansetron HCl/PF 4 MG/2 ML Vial IVP PRN (08:19)
[2018-12-15] MEDS ORDERED: Naloxone HCl 0.4 mg/ml Vial IV PRN (08:19)
[2018-12-15] MEDS ORDERED: Promethazine HCl 25 MG SUPP PR PRN (08:19)
[2018-12-15] MEDS ORDERED: diphenhydrAMINE 50 MG/ML VIAL IVP PRN (08:19)
[2018-12-15] MEDS ORDERED: L&D-Morphine 4 MG/ML VIAL SLOW IVP PRN (08:19)
[2018-12-15 08:25] LABS: Amphetamine Not Detected (NotDetected); Barbiturates Screen Not Detected (NotDetected); Benzodiazepine Screen Not Detected (NotDetected); Cocaine Metabolite Screen Not Detected (NotDetected); Medtox Control Line Valid? VALID (VALID); Medtox Reader # READER 1; Methadone Not Detected (NotDetected); Methamphetamine Not Detected (NotDetected); Opiate Screen Not Detected (NotDetected); Oxycodone Screen Not Detected (NotDetected); Phencyclidine (PCP) Not Detected (NotDetected); THC/Cannabinoid Screen Detected (NotDetected); Tricyclic Screen Not Detected (NotDetected)
[2018-12-15] MEDS ORDERED: Communication Order-Pharmacy FS SCH (08:30)
--- NOTE | 2018-12-15 10:01 | OP ---
DATE OF PROCEDURE: 12/15/2018 PREOPERATIVE DIAGNOSES: 1. A 27-year-old, G3, P2-0-0-2 at 36 weeks and 3 days with placenta previa. 2. Status post steroid benefit. POSTOPERATIVE DIAGNOSIS: Status post primary low transverse section. ASSISTANTS: 1. Ingrid Stern MD. 2. Margie Pérez CNM. ANESTHESIA: Spinal per Dr. Geo Rucker. COMPLICATIONS: None. EBL: 700 mL. QBL: Pending. OPERATIVE FINDINGS: 1. Low-transverse hysterotomy without extension. 2. Placenta previa. 3. Normal-appearing uterus, tubes, and ovaries bilaterally. 4. Fundus firm and uterine hemostasis noted. 5. Male infant, Apgars and weight pending at the time of dictation. DESCRIPTION OF PROCEDURE: The patient was taken back to the OR with IV fluids running. When she was in the OR, spinal anesthesia was obtained. The patient was placed in dorsal supine position with a left lateral tilt. Natarajan catheter was placed using sterile technique, and the abdomen was prepped and draped in normal fashion for section. Gentamicin and clindamycin were given for prophylactic antibiotics. Anesthesia was tested after the abdomen was draped and found to be adequate. A Pfannenstiel skin incision was made with a scalpel. Skin incision was carried down through the subcutaneous tissue to the fascia. Once the fascia was reached, it was incised in the midline and extended superolaterally using curved Lan scissors. Sherry clamps were placed at the superior border of the fascia, which was sharply and bluntly dissected off the rectus abdominis muscles. In a similar fashion, a Sherry clamps were placed at the inferior border of the fascia, which was dissected down towards the pubic symphysis. The rectus muscles were bluntly . The peritoneum was bluntly entered and and stretched laterally. An Adam O retractor was placed into the peritoneal cavity for retraction visualization and protection of the wound. A low-transverse hysterotomy was made with a scalpel. The placenta was noted immediately at the hysterotomy with gentle fundal pressure. The 's head delivered. The membranes were ruptured with an Allis clamp with clear fluid noted. The infant was delivered through the hysterotomy without difficulty. The nose and mouth were suctioned. Delayed cord clamping was achieved at approximately 30 to 45 seconds. The cord was doubly clamped and cut. The infant was handed off to special care nurses in attendance. Cord blood was collected. The placenta was delivered. The uterus was exteriorized, massaged to firm, and cleared of clot and debris. The hysterotomy was inspected with no extension noted. The hysterotomy was closed with Monocryl suture in a running locked fashion. An additional [id number] stitch was placed at the left corner of the incision for hemostasis. After hemostasis was assured, and the fundus was noted to be firm, the hysterotomy and paracolic gutters were irrigated and suctioned dry. Of note, after delivery of the placenta, 1 g of tranexamic acid was given. After the hysterotomy was noted to be hemostatic, the Adam O retractor was removed from the abdominal cavity. The muscle belly and fascia were inspected with no areas of bleeding noted. The rectus fascia was reapproximated with PDS suture from corner to corner in a running fashion. The subcutaneous tissue was then irrigated and any small areas of bleeding were controlled with Bovie cauterization. The subcutaneous tissue was reapproximated with a series of plain gut suture. The skin was closed with 4-0 Monocryl and dressed with Dermabond dressing. The patient tolerated the procedure well. There were no complications. Job ID: [id number]
[2018-12-15] MEDS ORDERED: diphenhydrAMINE 25 MG CAP PO PRN (10:42)
[2018-12-15] MEDS ORDERED: Bisacodyl 10 MG SUPP PR PRN (10:42)
[2018-12-15] MEDS ORDERED: NS / Oxytocin 40 units/1000ml 1,000 ML IV SCH (10:42)
[2018-12-15] MEDS ORDERED: Lanolin Ointment 7 GM TUBE TOP PRN (10:42)
[2018-12-15] MEDS ORDERED: Acetaminophen 325 MG TAB PO PRN (10:42)
[2018-12-15] MEDS: Ketorolac Tromethamine 30 MG/ML VIAL IVP SCH ×2 (14:07→21:24)
[2018-12-15] MEDS: Ibuprofen 800 MG TAB PO SCH ×2 (14:23→19:47)
[2018-12-15] MEDS ORDERED: Sodium Chloride 0.9% 10 ML ONE ×2 (16:00→21:31)
[2018-12-15] MEDS ORDERED: Dexamethasone 20 MG/5 ML VIAL ONE (17:45)
[2018-12-15] MEDS: Docusate Calcium (SURFAK) 240 MG CAP PO SCH (20:46)
[2018-12-15] MEDS: Ferrous Sulfate 325 MG TAB PO SCH (20:47)
[2018-12-15] MEDS ORDERED: HYDROcodone/Acetaminophen 5/325 mg Tablet PO PRN (21:00)
[2018-12-15] MEDS: HYDROcodone/Acetaminophen 5/325 mg Tablet PO PRN (23:41)
[2018-12-15] MEDS: Simethicone Chewable 80 MG TAB PO PRN (23:42)
[2018-12-16] MEDS ORDERED: Sodium Chloride 0.9% 10 ML ONE (03:31)
[2018-12-16] MEDS: Ketorolac Tromethamine 30 MG/ML VIAL IVP SCH ×2 (03:33→10:25)
[2018-12-16] MEDS: Ibuprofen 800 MG TAB PO SCH ×3 (04:12→21:21)
[2018-12-16 06:17] LABS: Hemoglobin 10.4 g/dL (12.0-16.0); Mean Corpuscular HGB CONC 33.6 g/dL (32.0-36.0); Mean Corpuscular Hemoglobin 28.4 pg (27.0-31.0); Mean Corpuscular Volume 84.6 fL (78.0-98.0); Mean Platelet Volume 6.9 fL (7.4-10.4); Platelet Count 254 thou/uL (130-400); RBC Distribution Width 15.9 % (11.5-14.5); Red Blood Cell (RBC) Count 3.66 mill/uL (4.20-5.40); White Blood Cell (WBC) Count 10.9 thou/uL (4.8-10.8)
[2018-12-16] MEDS: Docusate Calcium (SURFAK) 240 MG CAP PO SCH ×2 (07:55→21:22)
[2018-12-16] MEDS: FLUoxetine HCl 20 MG CAP PO SCH (07:55)
[2018-12-16] MEDS: Prenatal Vitamin 1 TAB PO SCH (07:55)
[2018-12-16] MEDS: Simethicone Chewable 80 MG TAB PO PRN ×3 (07:55→21:21)
[2018-12-16] MEDS: Ferrous Sulfate 325 MG TAB PO SCH ×2 (10:26→19:29)
[2018-12-16] MEDS ORDERED: Adacel (T-DAP) 0.5 ML SYRINGE IM ONE (10:42)
[2018-12-16] MEDS: HYDROcodone/Acetaminophen 5/325 mg Tablet PO PRN ×3 (12:08→21:21)
[2018-12-17] MEDS: HYDROcodone/Acetaminophen 5/325 mg Tablet PO PRN ×5 (03:10→23:36)
[2018-12-17] MEDS: Simethicone Chewable 80 MG TAB PO PRN (03:10)
[2018-12-17] MEDS ORDERED: Ondansetron ODT 4 MG TAB PO PRN (03:25)
[2018-12-17] MEDS: Ibuprofen 800 MG TAB PO SCH ×3 (05:58→21:21)
--- NOTE | 2018-12-17 08:07 | PDOC.PP ---
Post Progress Note Post Day #: 1 Subjective: Pt is doing well. Hurting, but okay. She is happy to have her baby out of the NICU and states " it is all worth it now that I have him." PO intake tolerated: yes Flatus: yes Ambulation: yes Vital Signs (12 hours) Temp Pulse Resp BP Pulse Ox 12/17/18 03:30 97.6 F 90 20 121/82 97 12/17/18 00:00 98.2 F 86 20 119/66 97 12/16/18 21:21 98 Weight Weight 155 lb - Physical Examination General: NAD Cardiovascular: no m/r/g, RRR Respiratory: clear to auscultation bilaterally, non-labored breathing Abdominal: + bowel sounds (x 4 quadrants), lochia (minimal) Fundus firm & at: -1 Extremities: negative homans (B) Skin: CS incision dry & intact Neurological: no gross focal deficits Psychiatric: A&Ox3, normal affect Result Diagrams: 12/16/18 05:53 Additional Labs: Post Labs Blood Type O NEGATIVE 12/15/18 06:19 Hep Bs Antigen Non-Reactive S/CO (NonReactive) 12/15/18 06:19 (1) Delivery by section Code(s): EJG9718 - Status: Acute (2) Placenta previa Code(s): O44.00 - COMPLETE PLACENTA PREVIA NOS OR WITHOUT HEMOR, UNSP TRI Status: Acute - Assessment/Plan A: now p3 s/p PCS indicated by complete placenta previa with NML PPD#1 exam. P: routine care discharge home at earliest tomorrow if clinically appropriate
--- NOTE | 2018-12-17 08:15 | PDOC.PP ---
Post Progress Note Post Day #: 2 Subjective: Patient was able to urinate this morning and felt like she completely emptied. yesterday she kept saying something was not right and she "felt toxic" becaue she was holding on to her pee. Her pain is better controlled and she is taking pain medicine more regularly. PO intake tolerated: yes Flatus: yes Ambulation: yes Vital Signs (12 hours) Temp Pulse Resp BP Pulse Ox 12/17/18 03:30 97.6 F 90 20 121/82 97 12/17/18 00:00 98.2 F 86 20 119/66 97 12/16/18 21:21 98 Weight Weight 155 lb - Physical Examination General: NAD Respiratory: non-labored breathing Abdominal: lochia (minimal), no distention, appropriately TTP Fundus firm & at: -3 Extremities: negative homans (B) Skin: CS incision dry & intact Neurological: no gross focal deficits Psychiatric: A&Ox3, normal affect Result Diagrams: 12/16/18 05:53 Additional Labs: Post Labs Blood Type O NEGATIVE 12/15/18 06:19 Hep Bs Antigen Non-Reactive S/CO (NonReactive) 12/15/18 06:19 (1) Delivery by section Code(s): [id number] - Status: Acute (2) Placenta previa Code(s): O44.00 - COMPLETE PLACENTA PREVIA NOS OR WITHOUT HEMOR, UNSP TRI Status: Acute - Assessment/Plan A: G3 now p3 s/p primary CS for placenta previa. Resolved urinary retention 480mL output by toilet this am at 0730 P: Continue observation of urinary output by toilet. If I&O balance is WNML - will consider discharge home this afternoon/early evening.
[2018-12-17] MEDS: FLUoxetine HCl 20 MG CAP PO SCH (09:54)
[2018-12-17] MEDS: Docusate Calcium (SURFAK) 240 MG CAP PO SCH ×2 (09:54→21:21)
[2018-12-17] MEDS: Ferrous Sulfate 325 MG TAB PO SCH ×2 (09:54→21:21)
[2018-12-17] MEDS: Prenatal Vitamin 1 TAB PO SCH (09:54)
[2018-12-17] MEDS ORDERED: Zolpidem Tartrate 5 MG TAB PO PRN (22:09)
[2018-12-18] MEDS: Ibuprofen 800 MG TAB PO SCH (05:49)
[2018-12-18] MEDS: Docusate Calcium (SURFAK) 240 MG CAP PO SCH (08:38)
[2018-12-18] MEDS: Prenatal Vitamin 1 TAB PO SCH (08:39)
[2018-12-18] MEDS: FLUoxetine HCl 20 MG CAP PO SCH (08:39)
[2018-12-18] MEDS: HYDROcodone/Acetaminophen 5/325 mg Tablet PO PRN (12:15)
[2018-12-18] MEDS: Ferrous Sulfate 325 MG TAB PO SCH (12:17)
[2018-12-18 12:35] VITALS: BP 136/80; TEMP 98
--- NOTE | 2018-12-21 06:22 | PQF ---
[employer] [facility] Vale Lopez STEFANY CHRISTY DO [id number] CLINICAL DOCUMENTATION CLARIFICATION FORM: POST DISCHARGE Addendum to original discharge summary date: please see notes from INGRID PérezRangel Late entry note date: __ DATE:12/21/2018 ATTN: STEFANY CHRISTY DO Please exercise your independent, professional judgment in responding to the clarification form. Clinical indicators are provided on the bottom of this form for your review Please check appropriate box(s): [ ] Acute blood loss anemia [ ] Post-op anemia related to acute blood loss [ ] Anemia: [ ] Aplastic [ ] Nutritional [ ] Drug induced (specify) ___ [ ] Hemolytic [ ] Hereditary [ ] Acquired [ ] Autoimmune [ ] Non-autoimmune [ ] Enzyme disorder [ ] Chronic Anemia: [ ] Blood loss [ ] Hemolytic [ ] Simple [ ] Due to Vitamin B12 Deficiency [ ] Other [ ] Anemia of Chronic Disease (please specify) [ ] Other diagnosis [ ] Unable to determine For continuity of documentation, please document condition throughout progress notes and discharge summary. Thank You. CLINICAL INDICATORS - SIGNS / SYMPTOMS / LABS -Anemia-Labor and delivery H&P, 12/15 -Hgb: 11.0L-12/15, 10.4L-12/16-Laboratory report -HCT: 32.7L-12/15, 31.0L-12/16-Laboratory report -Estimated blood loss: 700ml-OP report, 12/15WESTLEY JAMIE DO RISK FACTORS - V-dizdlgs-ZM report, 12/15,STEFANY CHRISTY DO - Placenta previa-OP report, 12/15,STEFANY CHRISTY DO TREATMENTS: -Ferrous sulfate.PO-MAR, 12/15 (This form is maintained as a part of the permanent medical record) 2014 [employer]. All Rights Reserved [employer] [ not provided] [not provided] MTDD
== END 2018-12-18 12:20 | disposition home or self-care (01) | DRG 788 ==
LOC: L&D 05:41 → 3SW 12:13
PROVIDERS: ADMIT Obstetrics & Gynecology; ATTEND Obstetrics & Gynecology
PROC: 10D00Z1 Extraction of Products of Conception, Low, Open Approach (ICD-10-PCS; principal; 2018-12-15)
DX: O44.03 Complete placenta previa NOS or without hemorrhage, third trimester (principal); O99.344 Other mental disorders complicating childbirth; O99.02 Anemia complicating childbirth; D64.9 Anemia, unspecified; F41.9 Anxiety disorder, unspecified; Z3A.36 36 weeks gestation of pregnancy; Z37.0 Single live birth
CPT/HCPCS: 36415; 36416; 51702; 80306; 85027; 85461; 86780; 86850; 86870; 86900; 86901; 86922; 87340; 90384; 96372; J0690; J1100; J1200; J1580; J1885; J2250; J2274; J2405; J2550; J2590; J3490; Q0162

== ENCOUNTER 2018-12-30 09:26 | Outpatient (CLI) | payer OTHER ==
--- NOTE | 2018-12-30 10:12 | CT ---
CT Abdomen Pelvis W Con History: Pain. Recent . Evaluate for hernia. Comparison: None. Findings: Lung bases are clear. No pericardial effusion. 6 mm hypodensity in hepatic segment II likel y a cyst. 2 cm hypodensity hepatic segment VII likely a complex cyst versus a hemangioma, incompletely evaluated, though does not appear to have grown from the May 2017 CT angiogram ches t exam. Subtle hypodensity hepatic segment measuring 6 mm. Spleen and pancreas unremarkable. Gallbladder is unremarkable. Aortoiliac contour is normal. Adrenal glands are normal. No hydronephrosis. No abnormal retroperitoneal periaortic adenopathy. Recent low transverse section. No hernia. Globular enlarged uterus expected. No free fluid w ithin the pelvis. No hematoma. No dilated loops of large or small bowel. The appendix is visualized and is normal. Impression: 1. No evidence of hernia through the low-transverse section. 2. No acute inflammatory process within the abdomen or pelvis. No free fluid. No hemorrhage. 3. Hepatic hypodensities likely combination of cysts and hemangiomas.
== END 2018-12-30 09:27 | disposition home or self-care (01) ==
LOC: CT 09:26
PROVIDERS: ATTEND Obstetrics & Gynecology
DX: R10.9 Unspecified abdominal pain (principal); K76.89 Other specified diseases of liver
CPT/HCPCS: 74177

== ENCOUNTER 2019-01-02 08:09 | Emergency (ER) | payer OTHER ==
[2019-01-02 08:56] LABS: #Basophils 0.1 thou/uL (0.0-0.2); #Lymphocytes 1.8 thou/uL (1.20-3.40); #Monocytes 1.4 thou/uL (0.11-0.59); #Neutrophils 8.9 thou/uL (1.40-6.50); %Basophils 0.7 % (0.0-1.0); %Eosinophils 0.2 % (0.0-10.0); %Monocytes 11.1 % (0.0-10.0); Hemoglobin 13.2 g/dL (12.0-16.0); Mean Corpuscular HGB CONC 33.4 g/dL (32.0-36.0); Mean Corpuscular Hemoglobin 28.4 pg (27.0-31.0); Mean Corpuscular Volume 84.8 fL (78.0-98.0); Platelet Count 279 thou/uL (130-400); RBC Distribution Width 15.1 % (11.5-14.5); Red Blood Cell (RBC) Count 4.67 mill/uL (4.20-5.40); White Blood Cell (WBC) Count 12.1 thou/uL (4.8-10.8)
[2019-01-02 08:58] LABS: ALT (SGPT) 18 U/L (8-55); AST (SGOT) 21 U/L (5-34); Albumin 4.5 g/dL (3.5-5.0); Alkaline Phosphatase 101 U/L (40-150); Anion Gap 15 mmol/L (10-20); BUN (Urea Nitrogen) 9 mg/dL (7.0-18.7); Bilirubin, Total 0.8 mg/dL (0.2-1.2); Calc. Creatinine Clearance 0 mL/min (70-130); Calcium 9.5 mg/dL (7.8-10.44); Carbon Dioxide 21 mmol/L (22-29); Chloride 104 mmol/L (98-107); Estimated GFR-MDRD 74; Globulin 3.2 g/dL (2.4-3.5); Glucose 126 mg/dL (70-105); Protein, Total 7.7 g/dL (6.0-8.3); Sodium 137 mmol/L (136-145)
[2019-01-02 09:01] LABS: Potassium 2.9 mmol/L (3.5-5.1)
[2019-01-02] MEDS ORDERED: Potassium Chloride 20 MEQ TAB ONE (09:26)
--- NOTE | 2019-01-02 09:27 | RAD ---
EXAM: Portable chest PROVIDED CLINICAL HISTORY: Dyspnea COMPARISON: 05/28/2017 FINDINGS: Cardiac and mediastinal silhouette is within normal limits. No focal consolidation, pleural fluid or pneumothorax evident. IMPRESSION: No evidence for an acute cardiopulmonary process.
[2019-01-02] MEDS ORDERED: Ketorolac Tromethamine 30 MG/ML VIAL ONE (09:36)
[2019-01-02] MEDS ORDERED: Morphine 4 MG/ML VIAL ONE (09:36)
--- NOTE | 2019-01-02 10:12 | CT ---
EXAM: CT Abdomen Pelvis W Con PROVIDED CLINICAL HISTORY: Fever, back pain, status post 2 weeks ago COMPARISON: 12/30/2018 FINDINGS: The visualized lung bases are free of significant opacity. The liver, spleen, pancreas, kidneys and adrenal glands demonstrate a stable CT appearance. There is no bowel dilatation, inflammatory fat stranding, free fluid or free air apparent. There is n o evidence for appendicitis. There is a enlarged and heterogeneous appearance to the uterus, nonspecific and possibly on the basis of post state. The osseous structures demonstrate no concerning lytic or blastic lesions. IMPRESSION: Nonspecific uterine enlargement and heterogeneity, possibly on the basis of post state.
--- NOTE | 2019-01-02 11:37 | ULT ---
Exam: Right upper quadrant ultrasound: HISTORY: Abdominal pain. COMPARISON: CT and minimal 01/02/2019. FINDINGS: Liver: Enlarged measuring 18.7 cm in craniocaudal dimensions. A subcentimeter increased echogenic foc us is seen within the right hepatic lobe likely corresponding to the smaller hypodense lesion seen within the right hepatic lobe on recent CT scan exam; this is difficult to further characterize but m ay potentially represent a small hemangioma. The larger lesion seen within the right hepatic lobe on prior CT exam is not evaluated on this study. Gallbladder: No evidence of gallbladder calculi, gallbladder wall thickening, or pericholecystic flui d. Common bile duct: The common duct is normal in caliber measuring 5 mm in diameter. Pancreas: Limited visualized portions of the pancreas demonstrate a normal sonographic appearance. Right kidney: Right kidney demonstrates a normal sonographic appearance. The right kidney measures 1 2.4 cm in length. IVC: The visualized IVC demonstrates a normal sonographic appearance. IMPRESSION: 1. Hepatomegaly. 2. Small echogenic focus right hepatic lobe which may represent a small hemangioma. This likely corre sponds to a small hypodense lesion seen in the posterior right hepatic lobe on recent CT scan exam. Larger hypodense lesion within the right hepatic lobe on prior CT exam is not well visualized or imag ed on this exam for further evaluation. 3. No gallbladder calculi are seen.
[2019-01-02 12:20] LABS: Bilirubin Negative (Negative); Blood, Urine 1+ (Negative); Clarity Clear (Clear); Glucose, Urine (Dipstick) Normal (Negative); Leukocyte 500 Leu/uL (Negative); Mucous/LPF Rare LPF (<2+); Nitrite 2+ (Negative); Protein, Urine (Dipstick) 30 mg/dL (Neg-Trace); Squamous Epithelial None Seen HPF (0-3); Transitional Epithelial 0-3 HPF (None Seen); Urobilinogen Normal mg/dL (Less than 2); WBC/HPF Greater than 50 HPF (0-3)
[2019-01-02 12:30] LABS: Bacteria/HPF 3+ HPF (None Seen)
[2019-01-02] MEDS ORDERED: ISOVUE-370 76%-LOCM 1 ML ONE (12:46)
== END 2019-01-02 13:10 | disposition home or self-care (01) ==
LOC: ERS 08:09
DX: N10 Acute pyelonephritis (principal); E86.0 Dehydration; J45.909 Unspecified asthma, uncomplicated; Z79.899 Other long term (current) drug therapy
CPT/HCPCS: 36415; 71045; 74177; 76705; 80053; 81003; 81015; 83605; 85025; 87040; 93005; 96361; 96374; 96375; J1885; J2270; Q9966